=== PATIENT | male | born 1935 | race Caucasian/White ===

== ENCOUNTER 2023-11-06 11:07 | Emergency (ER) | payer SELFPAY ==
--- NOTE | 2023-11-06 11:08 | XR_ITS ---
WS: [id number] RIGHT HIP HISTORY: Trauma COMPARISON: None available. Right hip: No acute fracture or dislocation. No significant narrowing of the hip joint. No soft tissue abnormality. IMPRESSION: 1. No hip fracture. 2. Negative RIGHT hip.
--- NOTE | 2023-11-06 11:08 | CT_ITS ---
WS: [id number] CT HEAD NONCONTRAST HISTORY: Trauma TECHNIQUE: Contiguous axial imaging performed through the brain in 2.5 mm imaging. Bone and soft tiss ue windows. Sagittal and coronal reformats reviewed. All CT scans at [facility] use at least one of these dose optimization techniques: automated exposure control; mA and/or kV adjustment per pa tient size (includes targeted exams where dose is matched to clinical indication); or iterative recon struction. DLP: 1663.09 mGy.cm COMPARISON: None available. Acute extra-axial blood along the anterior LEFT interhemispheric falx. Acute blood products abut the falx and extend to the LEFT of midline into the sulci of the medial frontal lobe. This is a small are a of acute blood. No midline shift or mass effect. There is an additional area of very slight increas ed density along the medial LEFT frontal lobe cortex which is probably a focal hemorrhagic contusion. No additional acute blood products. 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 Ventricles: Normal size with no hydrocephalus. No inferior displacement the cerebellar tonsils. Paranasal sinuses: There is extensive soft tissue completely opacifying the maxillary sinuses with ex tension into the ethmoid air cells and to a lesser extent the sphenoid and frontal sinuses. This is c hronic. Mastoid air cells: Cerumen in the external auditory canals. Calvarium and scalp: No skull fracture. There is a moderate to large acute RIGHT frontal scalp hemato ma. IMPRESSION: 1. Acute hemorrhagic contusion involving the medial LEFT frontal lobe cortex with a small amount of subarachnoid blood. No midline shift or mass effect. 2. Moderate to large scalp hematoma over the RIGHT frontal bone. No fracture. 3. Pansinusitis. Notified Gautam Martinez DO at 11/06/2023 11:38 AM.
[2023-11-06 11:09] VITALS: BP 148/84; PULSE 56; TEMP 36.4; O2SAT 99; BMI 19.0
--- NOTE | 2023-11-06 11:12 | CT_ITS ---
WS: [id number] CT CERVICAL SPINE HISTORY: trauma TECHNIQUE: Contiguous 2.0 mm axial imaging performed through the entire cervical spine. Sagittal and coronal reformats also performed. All CT scans at [facility] use at least one of these dose o ptimization techniques: automated exposure control; mA and/or kV adjustment per patient size (include s targeted exams where dose is matched to clinical indication); or iterative reconstruction. DLP: 1663.09 mGy.cm COMPARISON: None available. There is slight increase in the cervical lordosis. Posterior cervical alignment is normal. Facet join ts are normally aligned. Osseous fusion along the RIGHT C3-4 facet joint. Craniocervical junction is normal. Lateral masses of C1 and C2 are aligned. The odontoid is intact. C2-C3: Mild facet arthritis. C3-C4: Moderate bilateral facet joint arthritis and mild RIGHT foraminal narrowing. C4-C5: Bilateral facet arthritis. C5-C6: Bilateral facet joint arthritis, LEFT greater than RIGHT. Moderate LEFT foraminal stenosis. C6-C7: Mild facet arthritis and foraminal narrowing. C7-T1: Normal. Very small cervical chain lymph nodes. IMPRESSION: 1. No acute cervical spine fracture. 2. Degenerative facet joint arthritis.
--- NOTE | 2023-11-06 11:14 | ED_ITS ---
HPI - Fall 2 General: Chief Complaint: Head Injury Stated Complaint: fall, rt eye hip pain, rt eye hematoma Time Seen by Provider: 11/06/23 11:08 Source: patient Mode of arrival: EMS History of Present Illness: 88-year-old male presents emergency room via EMS. He had a fall several hours ago. He is not on any blood thinners there is no loss of consciousness. He slipped and fell on the ice. He has some right hip pain has a laceration above his right thigh. He is unsure of his last tetanus shot he refused c-collar at the scene. He denies any other injuries. MD complaint: fall Onset (ago): hour(s) Fall from: standing Place fall occurred: home Loss of consciousness: Yes Prolonged down time: no Symptoms prior to fall: none Context: tripped/slipped Location of injury: head Location of injury - extremities: Right: thigh (hip) Associated symptoms-after fall: Reports difficulty walking; Denies abdominal pain, chest pain, confusion, headache(s), hematuria, lightheadedness, neck pain, numbness, short of breath, vertigo or weakness Review of Systems 2 Const: Denies: fever(s), chills, fatigue or malaise Card: Denies: chest pain or lightheadedness Resp: Denies: dyspnea GI: Denies: abdominal pain : Denies: dysuria, urinary frequency, urinary urgency or hematuria Musc: Denies: neck pain or back pain Skin/Breast: Denies: rash Neuro: Reports: difficulty walking; Denies: headache(s), vertigo or confusion Physical Exam 2 Const: GENERAL APPEARANCE: cooperative and comfortable O RIENTATION/CONSCIOUSNESS: Yes awake, Yes oriented to person, Yes oriented to place and Yes oriented to time HENMT: COMMON NORMALS: normocephalic and hearing grossly normal bilaterally HEAD & SCALP: normocephalic Resp: COMMON NORMALS: normal respiratory effort, No retractions, No use of accessory muscles and clear to auscultation bilaterally AUSCULTATION: clear to auscultation bilaterally Cardio: COMMON NORMALS: regular rhythm and No murmurs present (Cardio) R ATE: bradycardic RHYTHM: regular rhythm GI: COMMON NORMALS: Soft to palpation and No hepatosplenomegaly present A USCULTATION: Yes normoactive bowel sounds PALPATION: Yes Soft to palpation, No Tenderness to palpation present (GI), No Guarding due to palpation present (GI) and Yes No hepatosplenomegaly present Extremity: COMMON NORMALS: normal to inspection, capillary refill normal, no clubbing, cyanosis or edema, no calf tenderness and no pedal edema Neuro: SENSORIUM/ORIENTATION: Yes oriented to person, Yes oriented to place and Yes oriented to time Skin: COMMON NORMALS: no rashes or lesions noted GENERAL SKIN EXAM: no rashes or lesions noted Procedures Laceration Laceration 1: Site: face Size (cm): 5 Description: linear Depth: simple, single layer Local Anesthetic: lidocaine 1% and with epi Amount of anesthesia used (mL): 3 Pre-repair: wound explored and irrigated extensively Skin layer closed with: nylon Size (cm): 4-0 Number of sutures: 3 Course 2 Vital Signs: Vital signs: Vital Signs Temperature 97.6 F 11/06/23 11:09 Pulse Rate 78 11/06/23 13:53 Respiratory Rate 18 11/06/23 13:53 Blood Pressure 151/72 11/06/23 13:53 Pulse Oximetry 98 11/06/23 13:53 Oxygen Delivery Me thod Room Air 11/06/23 11:09 MDM - Fall Medical Decision Making Laceration of the right quaker repaired with 3 interrupted sutures 4-0 Prolene. Patient tolerated well. CT shows subarachnoid hemorrhage will transfer ER to ER to [facility] in [place] discussed with patient he was given TXA and Keppra Medical Records I reviewed the patient's medical records. Lab Data I reviewed the patient's lab results. 11/06/23 11:39 11/06/23 11:39 Laboratory Results WBC 12.86 10^3/uL (3.29-11.43) H 11/06/23 11:39 RBC 4.16 10^6/uL (3.85-5.65) 11/06/23 11:39 Hgb 13.60 g/dL (11.27-16.99) 11/06/23 11:39 Hct 40.6 % (37-53) 11/06/23 11:39 MCV 97.6 fl (82-101) 11/06/23 11:39 MCH 32.7 pg (27-33) 11/06/23 11:39 MCHC 33.5 g/dL (30-55) 11/06/23 11:39 RDW 12.0 % (12.1-15.1) L 11/06/23 11:39 Plt Count 262 10^3/cmm (157-399) 11/06/23 11:39 MPV 9.2 fL (7.4-10.4) 11/06/23 11:39 Neut % (Auto) 86.6 % 11/06/23 11:39 Lymph % (Auto) 8.7 % 11/06/23 11:39 [place] % (Auto) 3.9 % 11/06/23 11:39 Eos % (Auto) 0.1 % 11/06/23 11:39 Baso % (Auto) 0.2 % 11/06/23 11:39 Neut # (Auto) 11.13 10^3/uL (1.8-7.7) H 11/06/23 11:39 Lymph # (Auto) 1.1 10^3/uL (0.8-4.8) 11/06/23 11:39 [place] # (Auto) 0.5 10^3/uL (0.2-0.9) 11/06/23 11:39 Eos # (Auto) 0.0 10^3/uL (0.0-0.8) 11/06/23 11:39 Baso # (Auto) 0.0 10^3/uL (0.0-0.1) 11/06/23 11:39 Nucleated RBC % (auto) 0 % 11/06/23 11:39 Nucleated RBCs # 0.0 /100WBC 11/06/23 11:39 Sodium 138 mmol/L (136-145) 11/06/23 11:39 Potassium 4.5 mmol/L (3.5-5.1) 11/06/23 11:39 Chloride 102 mmol/L (98-107) 11/06/23 11:39 Carbon Dioxide 27 mmol/L (22-29) 11/06/23 11:39 Anion Gap 13.5 (5-19) 11/06/23 11:39 BUN 18 mg/dL (8-23) 11/06/23 11:39 Creatinine 0.7 mg/dL (0.7-1.2) 11/06/23 11:39 GFR Calculation Not Reportable 11/06/23 11:39 Glucose 126 mg/dL (65-115) H 11/06/23 11:39 Calculated Osmolality 289 mOsm/kg (285-295) 11/06/23 11:39 Calcium 9.4 mg/dL (8.5-10.5) 11/06/23 11:39 Total Bilirubin 0.4 mg/dL (0.15-1.2) 11/06/23 11:39 AST 15 U/L (0-40) 11/06/23 11:39 ALT 11 U/L (0-41) 11/06/23 11:39 Alkaline Phosphatase 113 U/L (40-130) 11/06/23 11:39 Total Protein 6.9 g/dL (6.6-8.7) 11/06/23 11:39 Albumin 3.9 g/dL (3.5-5.2) 11/06/23 11:39 Globulin 3.0 g/dL (1.3-4.6) 11/06/23 11:39 Urine Color Yellow (Yellow) 11/06/23 11:56 Urine Appearance Sl hazy (CLEAR) A 11/06/23 11:56 Urine pH 7 (5-7) 11/06/23 11:56 Ur Specific [place] 1.010 (1.005-1.030) 11/06/23 11:56 Urine Protein Neg (Negative) 11/06/23 11:56 Urine Glucose (UA) Norm (Normal) 11/06/23 11:56 Urine Ketones Negative (Negative) 11/06/23 11:56 Urine Blood Neg (Negative) 11/06/23 11:56 Urine Nitrate Negative (Negative) 11/06/23 11:56 Urine Bilirubin Neg (Negative) 11/06/23 11:56 Urine Urobilinogen Norm mg/dL (Negative) 11/06/23 11:56 Ur Leukocyte Esterase Negative (Negative) 11/06/23 11:56 Urine RBC 0-4 /hpf (0-2) H 11/06/23 11:56 Urine WBC 0-4 /hpf (0-5) H 11/06/23 11:56 Ur Squamous Epith Cells 0-4 /hpf (0-5) H 11/06/23 11:56 Amorphous Sediment 1+ /hpf 11/06/23 11:56 Urine Bacteria 1+ /hpf (NONE) H 11/06/23 11:56 Urine Mucus Trace /hpf 11/06/23 11:56 All radiology interpretation(s) finalized by discharge Discharge Plan Discharge Patient Disposition: Transfer to ED Clinical Impression: Subarachnoid hematoma, Facial laceration Condition: Stable Coding Level of Care Code ED Auto Radiator Mechanic for Archana Brambila
[2023-11-06 11:54] LABS: Basophils % 0.2 %; Eosinophils % 0.1 %; Hematocrit 40.6 % (37-53); Lymphocytes # 1.1 10^3/uL (0.8-4.8); Lymphocytes % 8.7 %; Mean Corpuscular HGB Conc 33.5 g/dL (30-55); Mean Corpuscular Hemoglobin 32.7 pg (27-33); Mean Corpuscular Volume 97.6 fl (82-101); Mean Platelet Volume 9.2 fL (7.4-10.4); Monocytes # 0.5 10^3/uL (0.2-0.9); Monocytes % 3.9 %; Neutrophils # 11.13 10^3/uL (1.8-7.7); Neutrophils % 86.6 %; Nucleated Red Blood Cells % 0 %; Platelet Count 262 10^3/cmm (157-399); Red Blood Count 4.16 10^6/uL (3.85-5.65); White Blood Count 12.86 10^3/uL (3.29-11.43)
[2023-11-06] MEDS: tranexamic acid 1,000 MG/100 ML PREMIX 600 MG IV (12:04)
[2023-11-06] MEDS: lidocaine-epi 1% 20 mL INJ INJECTION (12:05)
[2023-11-06] MEDS: hyDRALAzine 20 mg/mL INJ 1 mL 5 MG IVP (12:05)
[2023-11-06 12:07] LABS: Alanine Aminotransferase 11 U/L (0-41); Albumin Level 3.9 g/dL (3.5-5.2); Alkaline Phosphatase 113 U/L (40-130); Anion Gap 13.5 (5-19); Aspartate Amino Transferase 15 U/L (0-40); Blood Urea Nitrogen 18 mg/dL (8-23); Calcium 9.4 mg/dL (8.5-10.5); Carbon Dioxide 27 mmol/L (22-29); Chloride 102 mmol/L (98-107); Glucose 126 mg/dL (65-115); Osmolality Calculated 289 mOsm/kg (285-295); Potassium 4.5 mmol/L (3.5-5.1); Sodium 138 mmol/L (136-145); Total Bilirubin 0.4 mg/dL (0.15-1.2); Total Protein 6.9 g/dL (6.6-8.7)
[2023-11-06] MEDS: tetanus-dipt-pertussis 0.5 mL SDV IM (12:07)
[2023-11-06 12:35] LABS: Bilirubin Urine Neg (Negative); Blood Urine Neg (Negative); Glucose Urine UA Norm (Normal); Ketones Urine Negative (Negative); Leukocyte Esterase Urine Negative (Negative); Nitrate Urine Negative (Negative); Protein Urine Neg (Negative); Urine Appearance SL Hazy (CLEAR); Urine Color Yellow (Yellow); Urobilinogen Urine Norm (Negative); pH Urine 7 (5-7)
[2023-11-06 12:36] LABS: Add Urine Culture? No; Add Urine Microscopic? YES; Amorphous Sediment Urine 1+ /hpf; Bacteria Urine 1+ /hpf; Mucus Urine TRACE /hpf; RBC Urine 0-4 /hpf (0-2); Squamous Epithelial Cell Urine 0-4 /hpf (0-5); WBC Urine 0-4 /hpf (0-5)
[2023-11-06] MEDS: levETIRAcetam 1,000 MG/100 ML PREMIX 400 MG IV (13:21)
[2023-11-06 13:53] VITALS: BP 151/72; PULSE 78; RESP 18; O2SAT 98
== END 2023-11-06 13:55 ==
PROVIDERS: Emergency Provider Family Medicine
DX: S06.6XAA Traumatic subarachnoid hemorrhage with loss of consciousness status unknown, initial encounter (principal); S01.81XA Laceration without foreign body of other part of head, initial encounter; W00.0XXA Fall on same level due to ice and snow, initial encounter; Z23 Encounter for immunization
CPT/HCPCS: 12013; 36415; 70450; 72125; 73502; 80053; 81001; 85025; 90471; 90715; 96374; 96375; 99285; J0360; J1953